=== PATIENT | female | born 1935 | race Caucasian/White ===

== ENCOUNTER → 2022-07-28 07:52 | Outpatient (BNVA) | payer MEDICARE, OTHER, SELFPAY | PROVIDERS: Family Provider Family Medicine; Visit Provider Family Medicine | DX: I10 Essential (primary) hypertension (principal); E04.9 Nontoxic goiter, unspecified; R22.1 Localized swelling, mass and lump, neck; R42 Dizziness and giddiness | CPT/HCPCS: 80053; 80061; 84439; 84443; 84481; 85025; 85651; 86140 ==

== ENCOUNTER 2022-08-10 10:30 | Outpatient (CLI) | payer MEDICARE, OTHER, SELFPAY ==
--- NOTE | 2022-08-10 11:00 | CT_ITS ---
WS: [id number] CT NECK TECHNIQUE: Contrast-enhanced CT of the neck with coronal and sagittal reformatted images. CLINICAL INFORMATION: neck mass COMPARISON: None. DLP: 233.[address] scans at [facility] use at least one of these dose optimization techniques: automated e xposure control; mA and/or kV adjustment per patient size (includes targeted exams where dose is matc hed to clinical indication); or iterative reconstruction. FINDINGS: Heterogeneously enhancing markedly enlarged thyroid. Associated symmetric mass effect on th e airway with mild narrowing. Narrowing of the trachea at the thoracic inlet. No high-grade airway co mpromise. The largest nodule RIGHT lower thyroid lobe measuring 5.4 x 4.4 cm and LEFT upper thyroid l obe measuring 4.7 x 2.8 cm. This can be further evaluated ultrasound. Associated displacement of the carotid vessels bilaterally. No cervical lymphadenopathy. Dental artifact degrades some images the tongue base. Normal posterior n asopharynx. Normal parapharyngeal fat. Normal submandibular glands. Normal parotid glands. Normal sup raglottic airway. Normal vallecula and piriform sinuses. Mastoid air cells are well aerated. Moderate spondylitic changes cervical spine. Straightening of the normal cervical lordosis. Lung apices are well aerated. Subpleural opacity in the LEFT lung apex anteriorly and medially measuring 1.3 x 2.0 x 3.1cm. This monique s a suspicious appearance and neoplasm not excluded. Recommend further evaluation with chest CT for c omplete lung evaluation and also PET/CT. This is not amenable to CT-guided biopsy. CT/CT neck w con* [id number] IMPRESSION: 1. Suspicious ovoid solid subpleural mass in the LEFT upper lobe at the lung a pex anterior medially measuring 1.3 x 2.0 x 3.1cm. Recommend further evaluation with PET/CT. Findings are suspicious for neoplasm. 2. In addition, recommend complete evaluation of the lungs with chest CT. 3. Markedly enlarged thyroid likely due to multinodular goiter with symmetric mass effect on the airway and trachea at the thoracic inlet with mild stenosis. No high-grade airway compromise. 4. Normal salivary glands. 5. No cervical lymphadenopathy.
[2022-08-10] MEDS: iohexol 350 mg/mL 100 mL Btl IV (11:47)
== END 2022-08-10 10:31 | disposition home or self-care (01) ==
PROVIDERS: PCP Family Medicine; Visit Provider Nurse Practitioner Family
DX: R22.1 Localized swelling, mass and lump, neck (principal); E04.9 Nontoxic goiter, unspecified
CPT/HCPCS: 70491

== ENCOUNTER → 2022-09-12 10:17 | Outpatient (BNVA) | payer MEDICARE, OTHER, SELFPAY | PROVIDERS: PCP Family Medicine; Visit Provider Otolaryngology | DX: R22.1 Localized swelling, mass and lump, neck (principal); E04.9 Nontoxic goiter, unspecified | CPT/HCPCS: 99203 ==

== ENCOUNTER 2022-10-03 07:05 | Outpatient (CLI) | payer MEDICARE, OTHER, SELFPAY ==
--- NOTE | 2022-10-03 | US_ITS ---
WS: [email or web address] ULTRASOUND THYROID FNA CLINICAL INFORMATION: thyroid goiter TECHNIQUE: Ultrasound-guided FNA FINDINGS: Prior imaging was reviewed. PET/CT September 16, [address] neck August 10, 2022 The procedure including risks, benefits, and complications were discussed with the patient who agreed to proceed. Timeout was performed. Using sterile technique patient was prepped and draped in usual s terile fashion. After 1% lidocaine, using ultrasound guidance, a 25-gauge needle was advanced into th e 6 mm RIGHT thyroid nodule. This was FDG positive on the prior PET/CT. 4 passes were made with activ e aspiration. Pathology was present for slide preparation. No immediate complications. Next, the large RIGHT heterogeneous solid nodule RIGHT thyroid was evaluated.After 1% lidocaine, usin g ultrasound guidance, a 25-gauge needle was advanced into the RIGHT thyroid goiter. 5 passes were ma de with active aspiration. Pathology was present for slide preparation. No immediate complications. Patient remained in the ultrasound suite 10 minutes postprocedure with intermittent ultrasound to ens ure no hematoma. No hematoma 10 minutes postprocedure. US/US guide FNA 2nd lesion [id number] IMPRESSION: Uncomplicated ultrasound-guided thyroid FNA of 2 right-sided nodules described above
--- NOTE | 2022-10-03 09:10 | US_ITS ---
WS: [email or web address] ULTRASOUND THYROID TECHNIQUE: Ultrasound of the thyroid. CLINICAL INFORMATION: R22.1 - Localized swelling, mass and lump, neck COMPARISON: Prior PET/CT September 16, 2022. Neck CT August 10, 2022 FINDINGS: Thyroid: Enlarged RIGHT greater than LEFT thyroid gland. RIGHT thyroid volume 111 cc. LEFT thyroid vo lume 33 cc. Right thyroid lobe: 8.9 cm x 5.3 cm x 4.5 cm Hypoechoic well-circumscribed solid nodule with vascularity measuring 6 mm demonstrated low-grade FDG activity on the prior PET/CT. FNA of this nodule performed today. Additional large goiter involving the majority of the RIGHT thyroid. FNA performed today. Dominant no dule measures 5.2 x 4.5 x 8.9 cm Left thyroid lobe: 6.9 cm x 3.2 cm x 2.9 cm. Goiter LEFT superior and inferior thyroid with heterogeneous echotexture. Heterogeneous Dominant left -sided nodules measure 3.1 x 1.7 x 3.4 cm inferior thyroid and 3.0 x 2.2 x 4.0 cm superior thyroid Isthmus: 0.9 mm. Cervical lymphadenopathy: Bilateral cervical lymph nodes within normal limits. US/US thyroid [id number] IMPRESSION: 1. Enlarged heterogeneous thyroid RIGHT greater than LEFT lobes most compatibl e with goiter. Dominant nodules bilaterally described above. 2. 6 mm solid nodule superior RIGHT thyroid lobe medially demonstrated FDG act ivity on the prior PET/CT. FNA was performed today. 3. FNA was performed of the dominant goitrous nodule RIGHT thyroid today. 4. Enlarged isthmus measuring 9 mm AP dimension with heterogeneous nodularity
--- NOTE | 2022-10-03 09:30 | US_ITS ---
WS: [email or web address] ULTRASOUND THYROID FNA CLINICAL INFORMATION: thyroid goiter TECHNIQUE: Ultrasound-guided FNA FINDINGS: Prior imaging was reviewed. PET/CT September 16, [address] neck August 10, 2022 The procedure including risks, benefits, and complications were discussed with the patient who agreed to proceed. Timeout was performed. Using sterile technique patient was prepped and draped in usual s terile fashion. After 1% lidocaine, using ultrasound guidance, a 25-gauge needle was advanced into th e 6 mm RIGHT thyroid nodule. This was FDG positive on the prior PET/CT. 4 passes were made with activ e aspiration. Pathology was present for slide preparation. No immediate complications. Next, the large RIGHT heterogeneous solid nodule RIGHT thyroid was evaluated.After 1% lidocaine, usin g ultrasound guidance, a 25-gauge needle was advanced into the RIGHT thyroid goiter. 5 passes were ma de with active aspiration. Pathology was present for slide preparation. No immediate complications. Patient remained in the ultrasound suite 10 minutes postprocedure with intermittent ultrasound to ens ure no hematoma. No hematoma 10 minutes postprocedure. US/US biopsy/FNA thyroid [id number] IMPRESSION: Uncomplicated ultrasound-guided thyroid FNA of 2 right-sided nodules described above
== END 2022-10-03 07:06 | disposition home or self-care (01) ==
LOC: RAD 07:05
PROVIDERS: PCP Family Medicine; Visit Provider Otolaryngology
DX: R22.1 Localized swelling, mass and lump, neck (principal); E04.9 Nontoxic goiter, unspecified
CPT/HCPCS: 10005; 10006; 76536; 88173; 88305

== ENCOUNTER → 2022-10-09 08:24 | Outpatient (BNVA) | payer MEDICARE, OTHER, SELFPAY | PROVIDERS: PCP Family Medicine; Visit Provider Otolaryngology | DX: E04.2 Nontoxic multinodular goiter (principal) | CPT/HCPCS: 99212; 99213 ==

== ENCOUNTER → 2023-04-09 07:48 | Outpatient (BNVA) | payer MEDICARE, OTHER, SELFPAY | PROVIDERS: PCP Electrodiagnostic Medicine; Visit Provider Otolaryngology | DX: E04.2 Nontoxic multinodular goiter (principal) | CPT/HCPCS: 99212 ==

== ENCOUNTER → 2023-12-31 07:44 | Outpatient (BNVA) | payer MEDICARE, OTHER, SELFPAY | PROVIDERS: PCP Electrodiagnostic Medicine; Visit Provider Otolaryngology | DX: E04.2 Nontoxic multinodular goiter (principal) | CPT/HCPCS: 36415; 84439; 84443; 84480; 99214 ==

== ENCOUNTER 2024-01-10 13:46 | Outpatient (CLI) | payer MEDICARE, OTHER, SELFPAY ==
--- NOTE | 2024-01-10 14:30 | US_ITS ---
WS: [email or web address] THYROID ULTRASOUND HISTORY: goiter COMPARISON: 10/03/2022 Right lobe: 4.6 cm x 4.4 cm x 7.6 cm (w x ap x l). Volume: 74 cm3. Markedly enlarged thyroid. Heterogeneous nodular gland with ill-defined nodules throughout. There are multiple nodules with the largest measuring 4.4 x 3.7 x 6.6 cm in the mid gland. No echogenic foci. No increased vascularity. Similar to the prior study. Left lobe: 3.6 cm x 3.5 cm x 6.9 cm (w x ap x l). Volume: 41 cm3. Enlarged heterogeneous nodular gland with multiple nodules throughout which are poorly defined. Large st nodule in the inferior pole measures 3.3 x 1.9 x 3.5 cm. Isthmus: 0.5 cm. IMPRESSION: 1. Markedly enlarged heterogeneous nodular thyroid. Numerous nodules throughout both thyroid lobes a re similar to the prior study. No new or increasing nodule is appreciated by ultrasound. Continued ye darnell ultrasound surveillance.
== END 2024-01-10 13:47 | disposition home or self-care (01) ==
LOC: RAD 13:47
PROVIDERS: PCP Electrodiagnostic Medicine; Visit Provider Otolaryngology
DX: E04.2 Nontoxic multinodular goiter (principal)
CPT/HCPCS: 76536

== ENCOUNTER → 2024-01-15 09:14 | Outpatient (BNVA) | payer MEDICARE, OTHER, SELFPAY | PROVIDERS: PCP Electrodiagnostic Medicine; Visit Provider Otolaryngology | DX: E04.2 Nontoxic multinodular goiter (principal) | CPT/HCPCS: 99212; 99213 ==